=== PATIENT | female | born 1990 | race Caucasian/White ===

== ENCOUNTER 2017-04-01 15:04 | Emergency (ER) | payer OTHER ==
[2017-04-01 15:12] VITALS: O2SAT 99
--- NOTE | 2017-04-01 15:44 | C.PDOC ---
History Of Present Illness 27F c/o left low back pain for 3 days and left flank and groin pain that started around 12pm today when she woke up. pain was more severe today but feels better now than at 12pm. pain is worse w movement. she has not taken any medication and denies need for medication at this time. she says the pain feels similar to kidney stone which she had in the past but also has had several ovarian cysts rupture as well. Time Seen by Provider: 04/01/17 15:41 Chief Complaint (Nursing): Back Pain Past Medical History Vital Signs: Last Vital Signs Temp 98.5 F 04/01/17 15:08 Pulse 95 H 04/01/17 15:08 Resp 20 04/01/17 15:08 BP 118/75 04/01/17 15:08 Pulse Ox 99 04/01/17 18:12 Family History: States: Other Other Family History: nc - Social History Hx Alcohol Use: Yes Hx Substance Use: No - Immunization History Hx Tetanus Toxoid Vaccination: No Hx Influenza Vaccination: No Hx Pneumococcal Vaccination: No Review Of Systems Constitutional: Negative for: Fever, Chills Cardiovascular: Negative for: Chest Pain Respiratory: Negative for: Cough, Shortness of Breath Gastrointestinal: Negative for: Nausea, Vomiting Genitourinary: Positive for: Pelvic Pain. Negative for: Dysuria, Hematuria, Vaginal Discharge, Vaginal Bleeding Neurological: Negative for: Weakness, Numbness, Headache Physical Exam - Physical Exam Appears: Well, Non-toxic, No Acute Distress Skin: Warm, Dry Eye(s): bilateral: PERRL Cardiovascular: Rhythm Regular Respiratory: No Decreased Breath Sounds, No Accessory Muscle Use Gastrointestinal/Abdominal: Soft, Tenderness (left lower abd just above pelvic brim), No Distention, No Guarding, No Rebound Back: No CVA Tenderness Neurological/Psych: Oriented x3, Other (no focal deficits) ED Course And Treatment O2 Sat by Pulse Oximetry: 99 Disposition - Disposition Referrals: [facility] [Outside] Disposition Time: 19:50 Condition: STABLE Additional Instructions: Please follow up with your doctor. You may return to the ER at any time should you change your mind. Forms: [facility] ([place]), General Discharge Instructions - Clinical Impression Clinical Impression: Abdominal pain, Low back pain, Ovarian cyst
[2017-04-01 16:04] LABS: HCG,QUALITATIVE URINE NEGATIVE (NEGATIVE)
[2017-04-01 16:05] LABS: SQUAMOUS EPITHIAL 1 /hpf (0-5); URINE BACTERIA FEW (<OCC); URINE BILIRUBIN NEGATIVE (NEGATIVE); URINE BLOOD NEGATIVE (NEGATIVE); URINE CLARITY Hazy (Clear); URINE COLOR Yellow (YELLOW); URINE GLUCOSE (UA) NORMAL (Normal); URINE LEUKOCYTE ESTERASE NEG Leu/uL (Negative); URINE NITRATE NEGATIVE (NEGATIVE); URINE PROTEIN 2+ mg/dL (NEGATIVE); URINE UROBILINOGEN NORMAL mg/dL (0.2-1.0)
--- NOTE | 2017-04-01 19:43 | US ---
EXAM: US Pelvis Complete, Transabdominal CLINICAL HISTORY: 27 years old, female; Pain; Pelvic pain and other: Lt flank pain; Additional info: Left low abd and flank pain R/O torsion TECHNIQUE: Real-time transabdominal pelvic ultrasound (complete) with image documentation. COMPARISON: No relevant prior studies available. FINDINGS: Uterus/cervix: Uterus measures 8.3 x 3.9 x 4.8 cm. Endometrial stripe measures 1 cm. No myometrial mass. Right ovary: The right ovary is not seen as a separate structure. Left ovary: The left ovary measures 3.2 x 2.2 x 2.6 cm and contains a 1.8 cm cyst. Blood flow is demonstrated in the left ovary color Doppler examination. Free fluid: No free fluid. Bladder: Unremarkable as visualized. Wall is normal thickness for degree of distention. IMPRESSION: No acute findings. EXAM: US Pelvis, Transvaginal EXAM DATE/TIME: Exam ordered 04/01/2017 4:19 PM CLINICAL HISTORY: 27 years old, female; Pain; Pelvic pain and other: Lt flank pain; Additional info: Left low abd and flank pain R/O torsion TECHNIQUE: Real-time transvaginal pelvic ultrasound (complete) with image documentation. Transvaginal imaging was used for better evaluation of the endometrium and adnexa. COMPARISON: No relevant prior studies available. FINDINGS: Uterus/cervix: Endometrial stripe measures 1 cm. No myometrial mass. Right ovary: The right ovary measures 2.7 x 1.2 x 3.5 cm and contains several subcentimeter follicles. Blood flow seen in the right ovary on color Doppler examination. Left ovary: The left ovary measures 3.1 x 3.3 x 3.5 cm and contains a 2.2 cm simple follicle. Blood flow is seen in the left ovary on color Doppler examination. Free fluid: A trace amount of free fluid is seen in the posterior cul-de-sac. Bladder: Empty bladder which cannot be evaluated with this probe. IMPRESSION: 1. No evidence of ovarian torsion 2. 2.2 cm simple follicle in the left ovary.
--- NOTE | 2017-04-01 19:45 | US ---
EXAM: US Retroperitoneal Limited, Renal EXAM DATE/TIME: Exam ordered 04/01/2017 4:19 PM CLINICAL HISTORY: 27 years old, female; Pain; Other: Lt flank pain; Prior surgery; Surgery date: 6+ months; Surgery type: Rt kid lithotripsy 5 yrs ago - as per pt; Additional info: Flank pain eval for hydro TECHNIQUE: Real-time ultrasound of the retroperitoneum (limited) with image documentation. COMPARISON: PELVIS/TRANSVAG US 2017-04-01 18:21 FINDINGS: Aorta: The distal abdominal aorta is not seen due to bowel gas. The proximal and mid aorta show no evidence of aneurysm. Right kidney: The right kidney measures 9.9 x 3.8 x 4.7 cm. A nonobstructing calculus is noted in the midportion right kidney measuring 5 mm. No hydronephrosis. Left kidney: The left kidney measures 9.8 x 4.7 x 4.7 cm. A nonobstructing calculus is noted in the lower pole left kidney measuring 4 mm. IMPRESSION: 1. Bilateral nonobstructing renal calculi. No hydronephrosis.
[2017-04-01 19:56] VITALS: BP 109/73; PULSE 84; RESP 18; TEMP 98.9
== END 2017-04-01 20:00 | disposition home or self-care (01) ==
LOC: C.ER 15:04
DX: N83.209 Unspecified ovarian cyst, unspecified side (principal); R10.32 Left lower quadrant pain; M54.5 Low back pain